=== PATIENT | male | born 1975 | race Caucasian/White ===

== ENCOUNTER 2017-10-22 09:32 | Emergency (ER) | payer OTHER ==
[~2017-10-22] VITALS: Ht 182.9 cm; Wt 110.8 kg
[2017-10-22] MEDS ORDERED: MAALOX/HYOSCYAMINE/LIDOCAINE 45 ML BTL PO ONE (10:30)
[2017-10-22] MEDS ORDERED: MAALOX/HYOSCYAMINE/LIDOCAINE 45 ML BTL ONE (10:41)
[2017-10-22 10:53] LABS: HEMATOCRIT 46.3 % (39.2-51.8); HEMOGLOBIN 16.1 g/dL (13.7-18.0); WHITE BLOOD COUNT 7.7 x10^3/uL (3.4-10)
[2017-10-22 11:04] LABS: ASPARTATE AMINO TRANSFERASE 39 U/L (15-37); BLOOD UREA NITROGEN 16 mg/dL (7-18)
[2017-10-22 11:15] LABS: IS PT STATUS REG ER OR PRE ER? YES
[2017-10-22 11:18] VITALS: BP 131/84
[2017-10-22] MEDS ORDERED: PANTOPRAZOLE 20MG TABLET ONE (11:50)
[2017-10-22] MEDS ORDERED: PANTOPROZOLE 40MG TABLET PO SCH (12:00)
== END 2017-10-22 12:20 | disposition home or self-care (01) ==
LOC: ED 12:00
DX: R07.89 Other chest pain (principal); Z88.0 Allergy status to penicillin
CPT/HCPCS: 36415; 80053; 83690; 84484; 85025; 93005; 99285

== ENCOUNTER → 2017-12-18 | Outpatient (CLI) | payer OTHER | END | disposition home or self-care (01) | LOC: CFH 08:26 | DX: K76.0 Fatty (change of) liver, not elsewhere classified (principal); Z90.89 Acquired absence of other organs | CPT/HCPCS: 76705 ==